=== PATIENT | female | born 1985 | race Asian ===

== ENCOUNTER 2018-01-10 10:42 | Emergency (ER) | payer OTHER ==
[2018-01-10 10:56] VITALS: BP 130/95
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
== END 2018-01-10 12:50 | disposition home or self-care (01) ==
LOC: UCEAST 10:42
DX: S20.219A Contusion of unspecified front wall of thorax, initial encounter (principal); S80.02XA Contusion of left knee, initial encounter; S46.912A Strain of unspecified muscle, fascia and tendon at shoulder and upper arm level, left arm, initial encounter; V43.52XA Car driver injured in collision with other type car in traffic accident, initial encounter; Y93.89 Activity, other specified; Y92.410 Unspecified street and highway as the place of occurrence of the external cause
CPT/HCPCS: 71120; 99201; G0463